=== PATIENT | female | born 1985 ===

== ENCOUNTER 2022-04-05 11:15 | Inpatient (IN) | payer OTHER ==
[~2022-04-05] VITALS: Ht 157.5 cm; Wt 52.6 kg
[2022-04-05] MEDS ORDERED: RESTORIL15 M1 PO (15:05)
== END 2022-04-09 14:26 | disposition home or self-care (01) | DRG 743 ==
LOC: O/R 04-07 09:32 → SURH 04-07 11:15 → OB/GYN 04-07 20:06
PROVIDERS: ADMIT Obstetrics & Gynecology; ATTEND Obstetrics & Gynecology
PROC: 0UB10ZZ Excision of Left Ovary, Open Approach (ICD-10-PCS; principal; 2022-04-07 13:45)
DX: D27.1 Benign neoplasm of left ovary (principal); Z20.822 Contact with and (suspected) exposure to COVID-19